=== PATIENT | male | born 1990 | race Caucasian/White ===

== ENCOUNTER 2017-12-27 21:09 | Emergency (ER) | payer MEDICAID, OTHER ==
[~2017-12-27] VITALS: Ht 185.4 cm; Wt 64.0 kg
[~2017-12-27 21:09] MED LIST: DOCU100C40 PO; DOXY-200 PO; HYDR-3972 PO
[2017-12-27 21:20] VITALS: BP 148/93
[2017-12-27] MEDS ORDERED: DOXY100C43 PO (22:15)
[2017-12-27] MEDS ORDERED: penicillin G benzathine 1.2 million unit/2ml syringe IM ONE (22:20)
[2017-12-27 22:32] LABS: CLARITY,URINE CLEAR (Clear); COLOR,URINE YELLOW (Yellow); GLUCOSE, URINE NEGATIVE (Neg); KETONES,URINE NEGATIVE (Neg); LEUKOCYTE ESTERASE ,URINE NEGATIVE (Neg); NITRITES, URINE NEGATIVE (Neg); OCCULT BLOOD,URINE NEGATIVE (Neg); PROTEIN,URINE NEGATIVE (Neg); UROBILINOGEN,URINE 0.2 E.U/dL (0.2-1.0)
[2017-12-27 22:36] LABS: BASOPHILS % (AUTO) 0.3 % (0-1); EOSINOPHILS # (AUTO) 0.2 X10'3 (0-0.9); EOSINOPHILS % (AUTO) 2.7 % (0-6); HEMATOCRIT 46.3 % (42.0-52.0); HEMOGLOBIN 15.9 g/dl (14.0-17.9); LYMPHOCYTES # (AUTO) 1.4 X10'3 (1.1-4.8); LYMPHOCYTES % (AUTO) 16.9 % (21-51); MEAN CORPUSCULAR HEMOGLOBIN 32.2 PG (27.0-31.0); MEAN CORPUSCULAR HGB CONC 34.4 % (33.0-36.5); MEAN CORPUSCULAR VOLUME 93.6 FL (78-98); MEAN PLATELET VOLUME 8.1 FL (7.4-10.4); MONOCYTES # (AUTO) 0.6 X10'3 (0-0.9); MONOCYTES % (AUTO) 7.8 % (2-12); NEUTROPHILS % (AUTO) 72.3 % (42-75); PLATELET COUNT 365 X10'3 (140-440); RED BLOOD COUNT 4.95 X10'6 (4.70-6.10); RED CELL DISTRIBUTION WIDTH 12.8 % (11.5-14.5); WHITE BLOOD COUNT 8.2 X10'3 (4.5-11.0)
[2017-12-27 22:40] LABS: ALANINE AMINOTRANSFERASE 29 U/L (12-78); ALBUMIN 3.9 G/DL (3.4-5.0); ALKALINE PHOSPHATASE 83 IU/L (46-116); ANION GAP 9 (8-16); ASPARTATE AMINO TRANSFERASE 18 U/L (10-37); BILIRUBIN,TOTAL 0.1 MG/DL (0.1-1.0); BLOOD UREA NITROGEN 14 MG/DL (7-18); BUN/CREATININE RATIO 15.4 (5.4-32.0); CALCIUM 9.5 MG/DL (8.5-10.1); CHLORIDE 104 MMOL/L (99-107); CREATININE 0.91 MG/DL (0.60-1.10); GLUCOSE 95 MG/DL (70-104); POTASSIUM 4.2 MMOL/L (3.5-5.1); SODIUM 140 MMOL/L (135-145); TOTAL CARBON DIOXIDE 27.2 MMOL/L (24-32); TOTAL PROTEIN 7.8 G/DL (6.4-8.2); eGFR > 90 ML/MIN
[2017-12-27 22:41] LABS: UA COLLECTION TYPE CLN CATCH MIDSTREAM
[2017-12-30 06:34] LABS: RPR Non Reactive (Non Reactive)
== END 2017-12-27 22:41 | disposition home or self-care (01) ==
LOC: ER 21:09
DX: R21 Rash and other nonspecific skin eruption (principal); F15.90 Other stimulant use, unspecified, uncomplicated; Z20.2 Contact with and (suspected) exposure to infections with a predominantly sexual mode of transmission; Z86.14 Personal history of Methicillin resistant Staphylococcus aureus infection; Z98.890 Other specified postprocedural states; Z79.899 Other long term (current) drug therapy
CPT/HCPCS: 36415; 80053; 81003; 85025; 86592; 87491; 87591; 96372; 99284; J0561

== ENCOUNTER 2018-09-18 11:55 | Emergency (ER) | payer SELFPAY ==
[~2018-09-18] VITALS: Ht 185.4 cm; Wt 68.0 kg
[2018-09-18 12:00] VITALS: BP 133/93
[2018-09-18] MEDS ORDERED: CefTRIAXone 1000mg IM Kit (w/lidocaine diluent) IM ONE (12:45)
[2018-09-18] MEDS ORDERED: azithromycin 250mg tablet PO ONE (12:45)
[2018-09-18] MEDS ORDERED: phenazopyridine 100mg tablet PO ONE (12:45)
[2018-09-18] MEDS ORDERED: metroNIDAZOLE 500mg tablet PO ONE (12:45)
[2018-09-18] MEDS ORDERED: penicillin G benzathine 1.2 million unit/2ml syringe IM ONE (13:10)
[2018-09-18] MEDS ORDERED: ACYC200C PO (13:15)
--- NOTE | 2018-09-18 13:43 | NUR ---
Pt received first shot of Bicillin and then refused the 2nd that had already been opened. Wasted last injection. Pt also refused Ceftriaxone after it had been reconstituted, med wasted.
[2018-09-18] MEDS ORDERED: DOXY100C43 PO (13:55)
== END 2018-09-18 14:12 | disposition left against medical advice (07) ==
LOC: ER 11:56
DX: A54.9 Gonococcal infection, unspecified (principal); N50.89 Other specified disorders of the male genital organs; L65.9 Nonscarring hair loss, unspecified; F15.90 Other stimulant use, unspecified, uncomplicated; Z86.14 Personal history of Methicillin resistant Staphylococcus aureus infection; Z98.890 Other specified postprocedural states; Z79.899 Other long term (current) drug therapy
CPT/HCPCS: 36415; 87491; 87591; 96372; 99284; J0561; J0696; J3490

== ENCOUNTER 2019-10-15 21:06 | Emergency (ER) | payer OTHER ==
[~2019-10-15] VITALS: Ht 185.4 cm; Wt 72.7 kg
[~2019-10-15 21:06] MED LIST changes: -DOXY-200 PO; +DOXY-243 PO
[2019-10-15 22:55] LABS: BASOPHILS % (AUTO) 0.6 % (0-1); EOSINOPHILS # (AUTO) 0.3 X10'3 (0-0.9); EOSINOPHILS % (AUTO) 4.2 % (0-6); HEMATOCRIT 41.7 % (42.0-52.0); HEMOGLOBIN 14.5 g/dl (14.0-17.9); LYMPHOCYTES # (AUTO) 2.6 X10'3 (1.1-4.8); LYMPHOCYTES % (AUTO) 32.5 % (21-51); MEAN CORPUSCULAR HEMOGLOBIN 31.8 PG (27.0-31.0); MEAN CORPUSCULAR HGB CONC 34.8 g/dL (33.0-36.5); MEAN CORPUSCULAR VOLUME 91.5 FL (78-98); MEAN PLATELET VOLUME 7.7 FL (7.4-10.4); NEUTROPHILS % (AUTO) 49.7 % (42-75); PLATELET COUNT 351 X10'3 (140-440); RED BLOOD COUNT 4.55 X10'6 (4.70-6.10); RED CELL DISTRIBUTION WIDTH 13.1 % (11.5-14.5)
[2019-10-15 23:06] LABS: ALANINE AMINOTRANSFERASE 37 U/L (12-78); ALBUMIN 4.1 G/DL (3.4-5.0); ALBUMIN/GLOBULIN RATIO 1.2 (1.1-1.5); ALKALINE PHOSPHATASE 64 IU/L (46-116); ANION GAP 9 (8-16); ASPARTATE AMINO TRANSFERASE 22 U/L (10-37); BILIRUBIN,TOTAL 0.5 MG/DL (0.1-1.0); BLOOD UREA NITROGEN 25 MG/DL (7-18); BUN/CREATININE RATIO 24.8 (5.4-32.0); CALCIUM 9.2 MG/DL (8.5-10.1); CHLORIDE 105 MMOL/L (99-107); CREATININE 1.01 MG/DL (0.60-1.10); GLUCOSE 94 MG/DL (70-104); SODIUM 143 MMOL/L (135-145); TOTAL CARBON DIOXIDE 28.8 MMOL/L (24-32); TOTAL PROTEIN 7.4 G/DL (6.4-8.2); eGFR 87 ML/MIN
[2019-10-15] MEDS ORDERED: ketorolac trometh. 30mg/ml inj. IV ONE (23:45)
[2019-10-15] MEDS ORDERED: ketorolac trometh. 30mg/ml inj. IM ONE (23:55)
[2019-10-16 00:18] VITALS: BP 138/81
== END 2019-10-16 00:17 | disposition home or self-care (01) ==
LOC: ER 21:07
DX: R07.1 Chest pain on breathing (principal); R06.02 Shortness of breath; F41.9 Anxiety disorder, unspecified; F15.90 Other stimulant use, unspecified, uncomplicated; Z86.14 Personal history of Methicillin resistant Staphylococcus aureus infection; Z98.890 Other specified postprocedural states; Z72.89 Other problems related to lifestyle; Z79.2 Long term (current) use of antibiotics; Z79.899 Other long term (current) drug therapy
CPT/HCPCS: 36415; 71045; 80053; 84484; 85025; 93005; 96372; 99285; J1885

== ENCOUNTER 2020-02-14 07:21 | Emergency (ER) | payer SELFPAY ==
[~2020-02-14] VITALS: Ht 185.4 cm; Wt 72.7 kg
[2020-02-14 07:27] VITALS: BP 121/87
[2020-02-14] MEDS ORDERED: CefTRIAXone 250MG IM Kit w/LIDOcaine IM ONE (07:35)
[2020-02-14] MEDS ORDERED: azithromycin 250mg tablet PO ONE (07:35)
== END 2020-02-14 07:51 | disposition home or self-care (01) ==
LOC: ER 07:22
DX: N30.91 Cystitis, unspecified with hematuria (principal); Z11.3 Encounter for screening for infections with a predominantly sexual mode of transmission; F41.9 Anxiety disorder, unspecified; F15.90 Other stimulant use, unspecified, uncomplicated; Z86.14 Personal history of Methicillin resistant Staphylococcus aureus infection; Z72.89 Other problems related to lifestyle; Z79.899 Other long term (current) drug therapy
CPT/HCPCS: 96372; 99283; J0696

== ENCOUNTER 2020-08-30 03:11 | Emergency (ER) | payer MEDICAID ==
[~2020-08-30] VITALS: Ht 185.4 cm; Wt 91.4 kg
[2020-08-30 03:19] VITALS: BP 142/87
[2020-08-30] MEDS ORDERED: LIDOcaine 1% 30ml preserv. free vial IJ ONE (03:40)
== END 2020-08-30 04:50 | disposition home or self-care (01) ==
LOC: ER 03:12
DX: S61.212A Laceration without foreign body of right middle finger without damage to nail, initial encounter (principal); F41.9 Anxiety disorder, unspecified; Z86.14 Personal history of Methicillin resistant Staphylococcus aureus infection; F15.90 Other stimulant use, unspecified, uncomplicated; Z72.89 Other problems related to lifestyle; Z79.899 Other long term (current) drug therapy; Z98.890 Other specified postprocedural states; W26.0XXA Contact with knife, initial encounter; Y93.89 Activity, other specified; Y92.89 Other specified places as the place of occurrence of the external cause; Y99.8 Other external cause status
CPT/HCPCS: 12001; 99282

== ENCOUNTER 2021-03-12 06:52 | Emergency (ER) | payer MEDICAID ==
[~2021-03-12] VITALS: Ht 185.4 cm; Wt 93.9 kg
[2021-03-12 06:56] VITALS: BP 153/101
[2021-03-12] MEDS ORDERED: HYDR-3965 PO (07:25)
[2021-03-12] MEDS ORDERED: AMOX-422 PO (07:25)
[2021-03-12] MEDS ORDERED: amox tr/potassium clavulanate 875/125mg TAB PO ONE (07:30)
[2021-03-12] MEDS ORDERED: HYDROcodone/acetaminophen 5mg/325mg tablet PO ONE (07:30)
== END 2021-03-12 07:53 | disposition home or self-care (01) ==
LOC: ER 06:53
DX: K04.7 Periapical abscess without sinus (principal); R22.0 Localized swelling, mass and lump, head; F41.9 Anxiety disorder, unspecified; F15.90 Other stimulant use, unspecified, uncomplicated; Z86.14 Personal history of Methicillin resistant Staphylococcus aureus infection; Z72.89 Other problems related to lifestyle; Z79.2 Long term (current) use of antibiotics; Z79.899 Other long term (current) drug therapy
CPT/HCPCS: 99283

== ENCOUNTER 2021-05-01 06:28 | Emergency (ER) | payer MEDICAID ==
[~2021-05-01] VITALS: Ht 185.4 cm; Wt 100.0 kg
[2021-05-01 06:39] VITALS: BP 157/107
[2021-05-01] MEDS ORDERED: AMOX500C2 PO (07:32)
[2021-05-01] MEDS ORDERED: acetaminophen 325mg tablet PO ONE (07:35)
[2021-05-01] MEDS ORDERED: amoxicillin 250mg capsule PO ONE (07:35)
[2021-05-01] MEDS ORDERED: ibuprofen tablet 400 MG TABLET PO ONE (07:35)
[2021-05-01] MEDS ORDERED: ondansetron 4mg rapidly disintigrating tab PO ONE (07:35)
== END 2021-05-01 09:36 | disposition home or self-care (01) ==
LOC: ER 06:28
DX: K04.7 Periapical abscess without sinus (principal); K08.89 Other specified disorders of teeth and supporting structures; R07.89 Other chest pain; F41.9 Anxiety disorder, unspecified; F15.90 Other stimulant use, unspecified, uncomplicated; Z86.14 Personal history of Methicillin resistant Staphylococcus aureus infection; Z72.89 Other problems related to lifestyle; Z98.890 Other specified postprocedural states; Z79.2 Long term (current) use of antibiotics; Z79.899 Other long term (current) drug therapy
CPT/HCPCS: 99284

== ENCOUNTER 2021-07-06 02:06 | Emergency (ER) | payer MEDICAID ==
[~2021-07-06] VITALS: Ht 185.4 cm; Wt 92.9 kg
[2021-07-06 02:12] VITALS: BP 148/95
[2021-07-06] MEDS ORDERED: AMOX-117 PO (02:50)
[2021-07-06] MEDS: amox tr/potassium clavulanate 875/125mg TAB PO ONE (02:58)
== END 2021-07-06 03:03 | disposition home or self-care (01) ==
LOC: ER 02:06
DX: K02.9 Dental caries, unspecified (principal); F17.210 Nicotine dependence, cigarettes, uncomplicated
CPT/HCPCS: 99283

== ENCOUNTER 2022-09-06 18:08 | Emergency (ER) | payer MEDICAID ==
[~2022-09-06] VITALS: Ht 185.4 cm; Wt 102.3 kg
[2022-09-07] MEDS ORDERED: OLANZapine 2.5MG tablet PO SCH (02:05)
[2022-09-07] MEDS ORDERED: chlordiazePOXIDE 25mg capsule PO ONE (02:05)
[2022-09-07] MEDS ORDERED: OLANZapine 2.5MG tablet PO ONE (02:05)
[2022-09-07] MEDS ORDERED: CHLO25CA10 PO (03:01)
[2022-09-07 03:13] VITALS: BP 129/91
== END 2022-09-07 03:21 | disposition home or self-care (01) ==
LOC: ER 18:09
DX: F10.129 Alcohol abuse with intoxication, unspecified (principal); F15.10 Other stimulant abuse, uncomplicated; Y90.9 Presence of alcohol in blood, level not specified
CPT/HCPCS: 99283

== ENCOUNTER 2023-01-12 05:06 | Emergency (ER) | payer MEDICAID ==
[~2023-01-12] VITALS: Ht 185.4 cm; Wt 75.0 kg
[~2023-01-12 05:06] MED LIST changes: +CHLO25CA10 PO
[2023-01-12 05:10] VITALS: TEMP 98.2
[2023-01-12] MEDS ORDERED: ondansetron 4mg rapidly disintigrating tab PO ONE (07:40)
[2023-01-12] MEDS ORDERED: LIDOcaine Viscous 15ml cup MM PRN (07:40)
[2023-01-12] MEDS ORDERED: mag hydrox/Alum hydrox/simeth 30ml oral suspension PO ONE (07:40)
[2023-01-12 07:50] VITALS: BP 164/104; PULSE 65; RESP 20; O2SAT 98
[2023-01-12 08:22] LABS: BASOPHILS % (AUTO) 0.3 % (0-1); EOSINOPHILS # (AUTO) 0.1 X10'3 (0-0.9); EOSINOPHILS % (AUTO) 0.5 % (0-6); HEMATOCRIT 47.4 % (42.0-52.0); HEMOGLOBIN 16.4 g/dl (14.0-17.9); LYMPHOCYTES # (AUTO) 1.2 X10'3 (1.1-4.8); LYMPHOCYTES % (AUTO) 9.8 % (21-51); MEAN CORPUSCULAR HEMOGLOBIN 32.2 PG (27.0-31.0); MEAN CORPUSCULAR HGB CONC 34.7 g/dL (33.0-36.5); MEAN PLATELET VOLUME 7.7 FL (7.4-10.4); MONOCYTES # (AUTO) 0.8 X10'3 (0-0.9); MONOCYTES % (AUTO) 6.2 % (2-12); NEUTROPHILS # (AUTO) 10.5 X10'3 (1.8-7.7); NEUTROPHILS % (AUTO) 83.2 % (42-75); PLATELET COUNT 317 X10'3 (140-440); RED CELL DISTRIBUTION WIDTH 13.1 % (11.5-14.5); WHITE BLOOD COUNT 12.6 X10'3 (4.5-11.0)
[2023-01-12 08:40] LABS: ALANINE AMINOTRANSFERASE 51 U/L (12-78); ALBUMIN 4.2 G/DL (3.4-5.0); ALBUMIN/GLOBULIN RATIO 1.3 (1.1-1.5); ALKALINE PHOSPHATASE 48 IU/L (46-116); ANION GAP 11 (8-16); ASPARTATE AMINO TRANSFERASE 21 U/L (10-37); BILIRUBIN,TOTAL 0.3 MG/DL (0.1-1.0); BLOOD UREA NITROGEN 20 MG/DL (7-18); CALCIUM 9.4 MG/DL (8.5-10.1); CHLORIDE 101 MMOL/L (99-107); CREATININE 0.87 MG/DL (0.60-1.10); GLUCOSE 120 MG/DL (70-104); LIPASE < 50 U/L (73-393); POTASSIUM 4.2 MMOL/L (3.5-5.1); SODIUM 137 MMOL/L (135-145); TOTAL CARBON DIOXIDE 25.1 MMOL/L (24-32); TOTAL PROTEIN 7.5 G/DL (6.4-8.2); eCRCL 129 ML/MIN; eGFR > 90 ML/MIN
[2023-01-12] MEDS ORDERED: ondansetron/PF 4mg/2ml inj IV ONE (09:25)
[2023-01-12] MEDS ORDERED: normal saline 1000ml 1,000 ML IV ONE (09:25)
[2023-01-12] MEDS ORDERED: morphine 4 MG/ML inj SYRINge IV ONE (09:25)
[2023-01-12] MEDS ORDERED: METO-292 PO (10:30)
[2023-01-12] MEDS ORDERED: LANS30CA37 PO (10:30)
== END 2023-01-12 11:04 | disposition home or self-care (01) ==
LOC: ER 05:06
DX: K29.70 Gastritis, unspecified, without bleeding (principal); F41.9 Anxiety disorder, unspecified; Z86.14 Personal history of Methicillin resistant Staphylococcus aureus infection; F17.200 Nicotine dependence, unspecified, uncomplicated; F15.10 Other stimulant abuse, uncomplicated; Z79.899 Other long term (current) drug therapy
CPT/HCPCS: 36415; 74176; 80053; 83690; 85025; 96361; 96374; 96375; 99285; J2270; J2405; J7030

== ENCOUNTER 2024-04-28 17:06 | Emergency (ER) | payer MEDICAID ==
[~2024-04-28] VITALS: Ht 185.4 cm; Wt 88.0 kg
[~2024-04-28 17:06] MED LIST changes: +LANS30CA37 PO; +METO-292 PO
[2024-04-28 18:05] LABS: BASOPHILS % (AUTO) 0.4 % (0-1); EOSINOPHILS # (AUTO) 0.1 X10'3 (0-0.9); EOSINOPHILS % (AUTO) 1.4 % (0-6); HEMATOCRIT 46.9 % (42.0-52.0); HEMOGLOBIN 16.3 g/dl (14.0-17.9); LYMPHOCYTES # (AUTO) 0.9 X10'3 (1.1-4.8); LYMPHOCYTES % (AUTO) 9.3 % (21-51); MEAN CORPUSCULAR HEMOGLOBIN 32.9 PG (27.0-31.0); MEAN CORPUSCULAR HGB CONC 34.7 g/dL (33.0-36.5); MEAN CORPUSCULAR VOLUME 94.7 FL (78-98); MEAN PLATELET VOLUME 7.6 FL (7.4-10.4); MONOCYTES # (AUTO) 1.3 X10'3 (0-0.9); MONOCYTES % (AUTO) 13.7 % (2-12); NEUTROPHILS # (AUTO) 7.3 X10'3 (1.8-7.7); NEUTROPHILS % (AUTO) 75.2 % (42-75); PLATELET COUNT 319 X10'3 (140-440); RED BLOOD COUNT 4.95 X10'6 (4.70-6.10); RED CELL DISTRIBUTION WIDTH 12.7 % (11.5-14.5); WHITE BLOOD COUNT 9.7 X10'3 (4.5-11.0)
[2024-04-28 18:30] LABS: ALANINE AMINOTRANSFERASE 24 U/L (12-78); ALBUMIN 3.9 G/DL (3.4-5.0); ALBUMIN/GLOBULIN RATIO 1.1 (1.1-1.5); ALKALINE PHOSPHATASE 58 IU/L (46-116); ANION GAP 11 (8-16); ASPARTATE AMINO TRANSFERASE 18 U/L (10-37); BILIRUBIN,TOTAL 0.3 MG/DL (0.1-1.0); BLOOD UREA NITROGEN 14 MG/DL (7-18); BUN/CREATININE RATIO 14.6 (10.0-20.0); CALCIUM 8.7 MG/DL (8.5-10.1); CHLORIDE 101 MMOL/L (99-107); CREATININE 0.96 MG/DL (0.60-1.10); GLUCOSE 95 MG/DL (70-104); POTASSIUM 3.8 MMOL/L (3.5-5.1); PRO BRAIN NATRIURETIC PEPTIDE < 30 PG/ML (0-125); SODIUM 139 MMOL/L (135-145); TOTAL CARBON DIOXIDE 26.9 MMOL/L (24-32); TOTAL PROTEIN 7.5 G/DL (6.4-8.2); eCRCL 124 ML/MIN; eGFR 90 ML/MIN
[2024-04-28 19:05] LABS: BILIRUBIN,URINE NEGATIVE (Neg); CLARITY,URINE SLIGHTLY CLOUDY (Clear); COLOR,URINE YELLOW (Yellow); GLUCOSE, URINE NEGATIVE (Neg); KETONES,URINE NEGATIVE (Neg); LEUKOCYTE ESTERASE ,URINE NEGATIVE (Neg); NITRITES, URINE NEGATIVE (Neg); OCCULT BLOOD,URINE NEGATIVE (Neg); PROTEIN,URINE NEGATIVE (Neg); UROBILINOGEN,URINE 0.2 E.U/dL (0.2-1.0)
[2024-04-28 19:11] LABS: UA COLLECTION TYPE CLN CATCH MIDSTREAM
[2024-04-28 19:12] LABS: MUCUS STRANDS MODERATE /LPF (Neg); SQUAMOUS EPITHELIAL CELL,UR FEW /LPF (FEW)
[2024-04-28 19:13] LABS: AMORPHOUS URATES 1+; BACTERIA,URINE NONE SEEN /HPF (Neg); RBC,URINE NONE SEEN /HPF (0-2); WBC,URINE 0-4 /HPF (0-4)
[2024-04-28] MEDS: ketorolac trometh 15mg/ml vial 15 MG/ML ML IV ONE (19:31)
[2024-04-28] MEDS: normal saline 1000ML IV soln IVB ONE (19:31)
[2024-04-28] MEDS ORDERED: NIRM1TAB9 PO (20:32)
[2024-04-28] MEDS: dexamethasone sod phosphate 10mg/ml inj IV STA (20:59)
[2024-04-28] MEDS: NIRMATRELVIR/RITONAVIR 300/100mg - 1 EACH TAB.DS.PK PO STA (21:11)
[2024-04-28 22:03] VITALS: BP 134/87; PULSE 68; RESP 16; TEMP 99.2; O2SAT 98
== END 2024-04-28 22:11 | disposition home or self-care (01) ==
LOC: ER 17:06
DX: U07.1 COVID-19 (principal); R07.9 Chest pain, unspecified; R19.7 Diarrhea, unspecified; F41.9 Anxiety disorder, unspecified; F10.90 Alcohol use, unspecified, uncomplicated; F15.90 Other stimulant use, unspecified, uncomplicated; Z98.890 Other specified postprocedural states; Z79.899 Other long term (current) drug therapy
CPT/HCPCS: 36415; 71045; 80053; 81001; 83880; 84484; 85025; 87502; 87503; 87811; 93005; 96361; 96374; 96375; 99285; J1100; J1885; J7030